=== PATIENT | male | born 1945 | race Caucasian/White ===

== ENCOUNTER → 2017-03-08 | Outpatient (CLI) | payer MEDICARE ==
[~2017-03-08] VITALS: Ht 170.2 cm; Wt 72.6 kg
[~2017-03-08] MED LIST: AMLO5TAB2 PO; CATHETER FLUSH 10 ML SYR IV PRN; ENLP10T PO; LOSA50TA36 PO; REGADENOSON 0.4 MG/5 ML SYR (LEXISCAN) IV ONE
[2017-03-08 08:02] VITALS: BP 122/64
--- NOTE | 2017-03-08 15:18 | STRESS TEST ---
PROCEDURE PHYSICIAN: OSMEL TAN DATE OF PROCEDURE: 03/08/2017 MYOCARDIAL PERFUSION IMAGING: ATTENDING PHYSICIAN: Dr. Espinosa. DIAGNOSIS: Chest pain. PROCEDURE DETAILS: The patient was brought to the stress lab after informed consent was taken. Pharmacological nuclear stress test was performed. Dr. Espinosa supervised the stress test portion of the test. Please refer to his note for further details on the stress test. 10.49 mCi of Myoview were given for rest imaging and 30.3 mCi of Myoview were given for stress imaging. TID was 0.89. EF: 73%. There is no perfusion abnormalities on stress or rest imaging. There is normal wall motion on gaited images. SSS 2, SRS 2, SDS 0. IMPRESSION/CONCLUSION: 1. Myocardial perfusion imaging shows no perfusion defect on and rest and stress imaging. 2. Normal LV function with no wall motion abnormalities. Job ID: [id number] Dictated Date: 03/08/2017 14:52:03 Mailing Specialist Date: 03/08/2017 15:15:16 / stacy
== END ==
LOC: CARD 06:51
PROVIDERS: ATTEND Nurse Practitioner Family
DX: R07.9 Chest pain, unspecified (principal)
CPT/HCPCS: 78452; 93017

== ENCOUNTER → 2017-08-23 | Outpatient (CLI) | payer MEDICARE ==
[~2017-08-23] MED LIST changes: -CATHETER FLUSH 10 ML SYR IV PRN; -REGADENOSON 0.4 MG/5 ML SYR (LEXISCAN) IV ONE
--- NOTE | 2017-08-23 10:56 | Diagnostic Imaging Report ---
PROCEDURE: MR imaging of the brain without contrast. TECHNIQUE: Multiplanar/multisequence MR imaging of the brain was performed without contrast. INDICATION: Tumors. Weakness. History of polymyositis. FINDINGS: There is no diffusion restriction to suggest an acute infarct or other diffusion abnormality. The brain parenchyma demonstrates periventricular and deep white matter mild T2 hyperintense signal abnormality with no mass effect or edema. No demyelinating lesion or brain mass is identified. No hydrocephalus. The brainstem and cerebellum appear unremarkable. The pituitary gland is normal in size. No hypothalamic or pineal region mass. The central vascular flow-voids appear unremarkable. The internal auditory canals and inner ear structures appear unremarkable. There is mucosal thickening in the left maxillary sinus and in the ethmoidal air cells. IMPRESSION: 1. No acute infarct. Minimal periventricular white matter signal abnormality is likely secondary to chronic microvascular ischemic changes. 2. Mucosal thickening in the paranasal sinuses. Dictated by: Dictated on workstation # [id number]
== END ==
LOC: RAD 09:06
PROVIDERS: ATTEND Psychiatry & Neurology Neurology
DX: G14 Postpolio syndrome (principal); J34.89 Other specified disorders of nose and nasal sinuses
CPT/HCPCS: 70551

== ENCOUNTER → 2018-02-14 | Outpatient (CLI) | payer MEDICARE ==
--- NOTE | 2018-02-14 12:44 | Diagnostic Imaging Report ---
PROCEDURE: US abdomen complete. TECHNIQUE: Multiple real-time grayscale images were obtained over the abdomen in various projections. INDICATION: Lower abdominal mass. FINDINGS: There are no prior ultrasound examinations available for comparison. Reportedly, there is clinical concern regarding a lower abdominal mass. During the course of the exam, the urinary bladder was visualized. Within the bladder, there is a small 0.5 x 0.6 x 0.6 cm intraluminal echogenic density. This finding is of uncertain etiology but could be related to a bladder neoplasm. Cystoscopy will be recommended for further evaluation. The urinary bladder is otherwise unremarkable. The right ureteral jet is visualized. There is no pelvic mass or free fluid collection noted otherwise. There is no acute abnormality of the abdomen. The liver does not appear to be enlarged and there is no sign of a hepatic mass. There is no evidence for cholelithiasis or acute cholecystitis and the common bile duct is not dilated. Both kidneys are identified. The right kidney measures 10.1 x 5.9 x 5.6 cm while the left kidney is estimated to be 10.4 x 5.4 x 4.4 cm. The renal pelvis on the left does seem slightly more prominent than the right. The reason for this is not certain. There is no evidence for a solid renal mass. The aorta and the inferior vena cava and spleen are unremarkable. The pancreas is obscured by bowel gas. IMPRESSION: 1. There is a small intraluminal mass in the bladder base on the right. This finding is of uncertain etiology but worrisome for neoplasm. Cystoscopy will be recommended for further study. 2. There is no mass or free fluid collection within the pelvis otherwise. If further study is desired, however, then CT of the abdomen and pelvis will be recommended. 3. There is no acute abnormality of the abdomen. 4. The left renal pelvis is slightly dilated compared to the right. The reason for this is not certain. This finding could also be further evaluated by CT. 5. The pancreas is obscured by bowel gas. Dictated by: Dictated on workstation # [id number]
== END ==
LOC: RAD 07:47
PROVIDERS: ATTEND Nurse Practitioner Family
DX: N32.89 Other specified disorders of bladder (principal)
CPT/HCPCS: 76700

== ENCOUNTER → 2018-02-18 | Outpatient (CLI) | payer MEDICARE ==
[~2018-02-18] MED LIST changes: +IOHEXOL 350 MG/ML 100 ML (OMNIPAQUE 350) VIAL IV ONE; +NS 250 ML (IVPB) BAG IV ONE
[2018-02-18 10:01] LABS: BUN/CREATININE RATIO 24; CREATININE SERUM 0.93 MG/DL (0.60-1.30); GFR ESTIMATED > 60
--- NOTE | 2018-02-18 11:08 | Diagnostic Imaging Report ---
PROCEDURE: CT abdomen and pelvis with and without contrast. TECHNIQUE: Precontrast acquisitions were acquired through the abdomen and pelvis. Multiple contiguous axial images were obtained through the abdomen and pelvis after the administration of intravenous contrast. INDICATION: Bladder mass was noted at earlier ultrasound. FINDINGS: Lung bases were clear. No basilar pleural fluid. Hepatic density suggests mild steatosis. There is no liver mass. Spleen, adrenals, pancreas and gallbladder unremarkable. There are bilateral mild renal parapelvic cysts with no hydronephrosis, solid enhancing or suspect renal mass. Scattered noninflamed diverticuli at the sigmoid colon. There is no abdominal, pelvic, mesenteric or retroperitoneal lymphadenopathy. Some heterogeneous enlargement of the prostate indenting the bladder base. The bladder was very poorly distended at the study limiting its evaluation. Its wall does appear to be at least mildly thickened. A discrete intraluminal bladder mass cannot be identified but again its assessment is limited by its lack of distention as well as impingement upon its base by the heterogeneous enlarged prostate. No perivesicle adenopathy. There is no suspicious lytic or sclerotic bone lesion. IMPRESSION: Heterogeneous nodular prostatomegaly indenting the bladder base. Bladder wall is thickened. Its evaluation limited by its poor distention. No discrete measurable intravesical mass. Benign renal parapelvic cysts. No hydronephrosis. No bowel, biliary or urinary tract obstruction. There was no lymphadenopathy. Mild steatosis in the liver noted. Not mentioned above, small fatty left inguinal hernia noninflamed. Dictated by: Dictated on workstation # [id number]
== END ==
LOC: RAD 09:32
PROVIDERS: ATTEND Internal Medicine
DX: N40.2 Nodular prostate without lower urinary tract symptoms (principal); N32.89 Other specified disorders of bladder; N28.1 Cyst of kidney, acquired; K76.0 Fatty (change of) liver, not elsewhere classified; K40.90 Unilateral inguinal hernia, without obstruction or gangrene, not specified as recurrent
CPT/HCPCS: 36415; 74178; 82565; 84520

== ENCOUNTER → 2019-05-15 | Outpatient (CLI) | payer MEDICARE ==
[~2019-05-15] MED LIST changes: -AMLO5TAB2 PO; +AMLO5TAB9 PO; +GADOBUTROL 7.5 MMOL/7.5 ML (GADAVIST) VIAL IV ONE; -IOHEXOL 350 MG/ML 100 ML (OMNIPAQUE 350) VIAL IV ONE; -LOSA50TA36 PO; +LOSA50TA63 PO; -NS 250 ML (IVPB) BAG IV ONE
[2019-05-15 08:29] LABS: BUN/CREATININE RATIO 18; CREATININE SERUM 0.87 MG/DL (0.60-1.30); GFR ESTIMATED > 60
--- NOTE | 2019-05-15 13:20 | Diagnostic Imaging Report ---
INDICATION: Right-sided hearing loss. TECHNIQUE: Pre-and post intravenous contrast multiplanar, multisequence imaging through the brain was performed. In addition, thin slice imaging through the IACs was performed. COMPARISON: Correlation is made with prior MRI of the brain from 08/23/2017. FINDINGS: The ventricles and sulci are appropriate for the patient's age. No diffusion restriction is identified. The normal expected flow voids within the carotid siphons are seen. No acute intra-axial or extra-axial hemorrhage is detected. Corpus callosum is unremarkable. Sella and parasellar structures are unremarkable. IACs appear unremarkable. No cerebellopontine angle mass is seen. The seventh and eighth nerve complexes are unremarkable. There is fluid throughout the right mastoid air cells consistent with right mastoid effusion. IMPRESSION: Essentially unremarkable MRI of the brain and IACs with the exception of right mastoid effusion. No other significant abnormality is seen. Dictated by: Dictated on workstation # [id number]
== END ==
LOC: RAD 06:54
PROVIDERS: ATTEND Otolaryngology Otolaryngology/Facial Plastic Surgery
DX: H91.8X1 Other specified hearing loss, right ear (principal); G93.6 Cerebral edema
CPT/HCPCS: 36415; 70553; 82565; 84520

== ENCOUNTER 2019-11-12 09:30 | Outpatient (CLI) | payer MEDICARE ==
[~2019-11-12] VITALS: Ht 170.2 cm; Wt 75.0 kg
[~2019-11-12 09:30] MED LIST changes: -GADOBUTROL 7.5 MMOL/7.5 ML (GADAVIST) VIAL IV ONE
[2019-11-12] MEDS ORDERED: LEVO50TA6 PO (09:38)
[2019-11-12] MEDS ORDERED: NALT50TA PO (09:38)
== END 2019-11-12 09:39 | disposition home or self-care (01) ==
LOC: PREOP 09:30
PROVIDERS: ATTEND Internal Medicine
DX: Z01.818 Encounter for other preprocedural examination (principal)

== ENCOUNTER 2019-11-13 08:31 | Day surgery (SDC) | payer MEDICARE ==
--- NOTE | 2019-11-11 07:51 | HISTORY AND PHYSICAL ---
DATE OF SERVICE: SCREENING COLONOSCOPY SUMMARY REFERRING PHYSICIAN Dr. Perry Espinosa. The patient is a 74-year-old white male referred for screening colonoscopy. He had a distant past history of colon polyps. His last colonoscopy was in [address] Davis. At that time, he had no evidence for polyposis. There was report of an ulceration on the ileocecal valve and some diverticulosis. On a previous colonoscopy, he had a villous adenoma removed via polypectomy prior to 2005. He has had no rectal bleeding. Denies bowel habit change, diarrhea, constipation or abdominal pain. 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 He is also on B12 replacement subq. PAST SURGICAL HISTORY: He also apparently had transanal resection for rectal villous adenoma. He has had multiple basal cells removed, tonsillectomy and adenoidectomy in the past and arthroscopic knee surgery. 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 He does admit drinking 2 to 3 beers per day on most days of the week. FAMILY HISTORY: He is not aware of any family history of colon cancer or polyposis. PHYSICAL EXAMINATION: GENERAL: Reveals a pleasant, alert and oriented white male in no acute distress. VITAL SIGNS: Weight 172 pounds, blood pressure 130/80, heart rate 70 and regular. HEENT: Unremarkable. Mallampati 2 oropharyngeal configuration. CHEST: Clear to auscultation. CARDIOVASCULAR: Reveals a regular rate and rhythm without murmur, S3 or S4. ABDOMEN: Soft, supple without mass, organomegaly or tenderness. No bruits are noted. No evidence for abdominal aortic aneurysm to palpation is noted. EXTREMITIES: Reveal no cyanosis, clubbing or edema. ASSESSMENT AND PLAN: The patient was set up for screening colonoscopy. Prep instructions with the Suprep kit were given and questions were answered. Thank you for the referral of this pleasant gentleman. Job ID: [id number] DocumentID: [id number] Dictated Date: 11/10/2019 10:11:36 Jewelry Casting Model Maker Apprentice Date: 11/10/2019 11:07:00 Dictated By: ERIC WEEMS MD
[2019-11-13] VITALS (14 sets, daily range): BP systolic 141–175; BP diastolic 70–86
[~2019-11-13] VITALS: Ht 170.2 cm; Wt 75.0 kg
[~2019-11-13 08:31] MED LIST changes: +LEVO50TA6 PO; +NALT50TA PO
[2019-11-13] MEDS ORDERED: D5 LR IV SOLUTION 1,000 ML IV ONE (08:36)
[2019-11-13] MEDS ORDERED: D5 LR IV SOLUTION 1,000 ML IV STA (08:41)
[2019-11-13] MEDS ORDERED: fentaNYL INJECTION 100 MCG/2 ML AMP IVP ONE (08:45)
[2019-11-13] MEDS ORDERED: MIDAZOLAM 5 MG/5 ML (VERSED) VIAL IV PRN (08:45)
[2019-11-13] MEDS ORDERED: LIDOCAINE JELLY 2% 6 ML SYRINGE ONE (09:09)
[2019-11-13] MEDS ORDERED: fentaNYL INJECTION 100 MCG/2 ML AMP ONE ×2 (09:09)
--- NOTE | 2019-11-13 09:41 | Pre-Op Note & Conscious Sedat ---
Pre-Operative Progress Note H&P Reviewed The H&P was reviewed, patient examined and no changes noted. Date H&P Reviewed: Nov 13, 2019 Time H&P Reviewed: 09:00 Conscious Sedation Pre-Proced ASA Score 2 For ASA 3 and 4: Consider anesthesia and medical clearance. Also, for patients with a history of failed moderate sedation consider anesthesia. Airway Lungs Heart ASA score ASA 1: a normal healthy patient ASA 2: a patient with a mild systemic disease (mid diabetes, controlled hypertension, obesity ASA 3: a patient with a severe systemic disease that limits activity (angina, COPD, prior Myocardial infarction) ASA 4: a patient with an incapacitating disease that is a constant threat to life (CHF, renal failure) ASA 5: a moribund patient not expected to survive 24 hrs. (ruptured aneurysm) ASA 6: a declared brain- patient whose organs are being harvested. For emergent operations, add the letter E after the classification Mallampati Classification Grade 2 Sedation Plan Analgesia, Amnesia, Plan communicated to team members, Discussed options with patient/fam, Discussed risks with patient/fam The patient is an appropriate candidate to undergo the planned procedure, sedation, and anesthesia. The patient immediately re-assessed prior to indication. ERIC WEEMS MD Nov 13, 2019 09:41
[2019-11-13] MEDS ORDERED: LIDOCAINE JELLY 2% 6 ML SYRINGE TOP ONE (10:00)
--- NOTE | 2019-11-13 16:15 | OPERATIVE REPORT ---
DATE OF SERVICE: COLONOSCOPY SUMMARY INDICATION FOR THE PROCEDURE: Screening. DESCRIPTION OF PROCEDURE: The patient was placed in the left lateral decubitus position. Prior to undergoing colonoscopy, digital rectal evaluation was performed. Anal sphincter tone was normal and the perianal reflexes intact. On digital inspection, there is a polypoid structure noted along the anterior rectal wall noted about 2 cm proximal to the anal verge. It was not firm nor fixed. The prostate was unremarkable to digital inspection did not appear to be enlarged, although the patient does have reported prostate cancer, noted to be elevated PSA and is on active surveillance. No other abnormalities were noted. The colonoscope was then inserted into the rectum and under direct visualization advanced to cecum. The cecum was identified by identification of the ileocecal valve and cecal strap. Photographic documentation was obtained. Careful inspection was made as the colonoscope was withdrawn. FINDINGS: There was no evidence for internal or external hemorrhoids. There is a flat polyp somewhat vascular without evidence for ulceration or inflammatory change noted along the anterior rectal wall. It is not well circumscribed and biopsies were obtained and submitted for histopathology. The remainder of the rectum was unremarkable. The present throughout the sigmoid colon where a moderate number medium to large size diverticulum without evidence for diverticulitis, haustral hypertrophy is noted with no evidence for obstruction or scar tissue. No evidence for neoplasia was identified. The descending colon, splenic flexure, transverse colon, hepatic flexure, ascending colon and cecum were unremarkable. ASSESSMENT: 1. Probable recurrent sessile adenoma involving the anterior rectal wall, which was too large to reliably remove via snare or via cautery. We will await histopathology report, but it does appear to be technically amenable to transanal resection. In review of his electronic medical, Dr. Milton had performed a colonoscopy on him in 2016, at which time he removed a tubulovillous adenoma via snare in what appears to be about the same location. There was no evidence for dysplasia at that time. 2. Moderate diverticular disease confined to the sigmoid colon was present without evidence for diverticulitis. No other significant abnormalities were noted. Thank you for the referral of this pleasant gentleman. Job ID: [id number] DocumentID: [id number] Dictated Date: 11/13/2019 11:14:35 Editor Managing Director Date: 11/13/2019 16:13:16 Dictated By: ERIC WEEMS MD [facility]
== END 2019-11-13 10:40 | disposition home or self-care (01) ==
LOC: ENDO 08:31
PROVIDERS: ATTEND Internal Medicine
DX: D12.8 Benign neoplasm of rectum (principal); K57.30 Diverticulosis of large intestine without perforation or abscess without bleeding; K59.39 Other megacolon; R97.20 Elevated prostate specific antigen [PSA]; I10 Essential (primary) hypertension; Z90.89 Acquired absence of other organs; Z85.46 Personal history of malignant neoplasm of prostate

== ENCOUNTER 2021-01-12 11:11 | Outpatient (RCR) | payer MEDICARE ==
[~2021-01-12 11:11] MED LIST changes: +AMLO-250 PO; -AMLO5TAB9 PO
== END 2021-01-12 12:00 | disposition home or self-care (01) ==
PROVIDERS: ATTEND Internal Medicine
DX: M46.06 Spinal enthesopathy, lumbar region (principal)

== ENCOUNTER 2021-09-14 08:59 | Outpatient (CLI) | payer MEDICARE ==
[~2021-09-14] VITALS: Ht 170.2 cm; Wt 74.0 kg
[2021-09-14] MEDS ORDERED: ERGO2000 PO (14:08)
[2021-09-14] MEDS ORDERED: NAPR220C11 PO (14:08)
[2021-09-14] MEDS ORDERED: VITA1CAP PO (14:08)
== END 2021-09-14 16:37 | disposition home or self-care (01) ==
LOC: PREOP 08:59
PROVIDERS: ATTEND Internal Medicine
DX: Z01.818 Encounter for other preprocedural examination (principal)

== ENCOUNTER → 2021-09-22 | Day surgery (SDC) | payer MEDICARE ==
--- NOTE | 2021-09-15 07:08 | HISTORY AND PHYSICAL ---
DATE OF SERVICE: COLONOSCOPY SUMMARY HISTORY: The patient is a 76-year-old white male referred by Dr. Espinosa for surveillance colonoscopy. I had performed colonoscopy on him in 11/2019, at which time he had a sessile villous adenoma without dysplasia noted along the anterior rectal wall. It was too large to reliably remove via snare cauterization, so he underwent transanal resection, it required 2 separate procedures, the last in April, at which time, Dr. Klein, surgeon in [place] told me he felt that he had removed all the polyp tissue. He reports that he has had no subsequent bleeding and has been feeling well. There has been no other change in his health history and no new medication. He takes no antiplatelet or anticoagulant medication. He has noted no blood in the stools, had no problems with constipation or diarrhea. PHYSICAL EXAMINATION: GENERAL: Reveals a white male, appears to be in no acute distress. HEENT: Unremarkable. Sclerae nonicteric. VITAL SIGNS: Weight stable at 172 pounds, blood pressure 122/70. CHEST: Clear. CARDIOVASCULAR: Reveals a regular rate and rhythm without murmur, S3 or S4. ABDOMEN: Soft, supple without mass, organomegaly or tenderness. RECTAL: Deferred at the time of colonoscopy. The patient is being set up for surveillance colonoscopy due to past history of villous adenoma ultimately removed via transanal resection in 2 procedures. The patient has no one to drive him and like his last colonoscopy, he requests that this be done without anesthesia, which he tolerated pretty well. For this reason, he will again be set up at [facility]. He is being set up for 09/22/2021. Prep instructions and Suprep kit were given and questions were answered. Thank you for the referral of this pleasant gentleman. Job ID: [id number] DocumentID: [id number] Dictated Date: 08/28/2021 14:54:13 Ship Surveyor Date: 08/28/2021 16:03:40 Dictated By: ERIC WEEMS MD [facility]
[~2021-09-22] VITALS: Ht 170.2 cm; Wt 74.0 kg
[~2021-09-22] MED LIST changes: +D5 LR IV SOLUTION 1,000 ML IV ONE; +D5 LR IV SOLUTION 1,000 ML IV STA; +ERGO2000 PO; +LIDOCAINE JELLY 2% 6 ML SYRINGE MM PRN; +MIDAZOLAM 5 MG/5 ML (VERSED) VIAL IV ONE; +NAPR220C11 PO; +VITA1CAP PO; +fentaNYL INJ 100 MCG/2 ML AMP IVP ONE
--- NOTE | 2021-09-22 09:48 | Pre-Op Note & Conscious Sedat ---
Pre-Operative Progress Note H&P Reviewed The H&P was reviewed, patient examined and no changes noted. Date H&P Reviewed: Sep 22, 2021 Time H&P Reviewed: 09:48 Conscious Sedation Pre-Proced ASA Score 2 For ASA 3 and 4: Consider anesthesia and medical clearance. Also, for patients with a history of failed moderate sedation consider anesthesia. Airway Lungs Heart ASA score ASA 1: a normal healthy patient ASA 2: a patient with a mild systemic disease (mid diabetes, controlled hypertension, obesity ASA 3: a patient with a severe systemic disease that limits activity (angina, COPD, prior Myocardial infarction) ASA 4: a patient with an incapacitating disease that is a constant threat to life (CHF, renal failure) ASA 5: a moribund patient not expected to survive 24 hrs. (ruptured aneurysm) ASA 6: a declared brain- patient whose organs are being harvested. For emergent operations, add the letter E after the classification Mallampati Classification Grade 2 Sedation Plan Analgesia, Amnesia, Plan communicated to team members, Discussed options with patient/fam, Discussed risks with patient/fam The patient is an appropriate candidate to undergo the planned procedure, sedation, and anesthesia. The patient immediately re-assessed prior to indication. ERIC WEEMS MD Sep 22, 2021 09:48
[2021-09-22 10:01] VITALS: BP 163/101
[2021-09-22 11:15] VITALS: BP 169/91
[2021-09-22 11:29] VITALS: BP 173/87
[2021-09-22 11:30] VITALS: BP 173/87
--- NOTE | 2021-09-22 16:55 | OPERATIVE REPORT ---
DATE OF SERVICE: COLONOSCOPY SUMMARY INDICATION FOR THE PROCEDURE: Followup villous adenoma of the rectum. DESCRIPTION OF PROCEDURE: The patient was placed in the left lateral decubitus position. Prior to undergoing colonoscopy, digital rectal evaluation was performed. Anal sphincter tone was normal. The perianal reflexes were intact. There was some narrowing of the distal rectum compatible with the patient's two previous transanal resections, but I was able to easily insert the finger past the area into the mid rectum. No other abnormalities were noted on digital inspection including no prostate abnormalities being appreciated. The colonoscope was then inserted into the rectum and under direct visualization advanced to the cecum. Cecum was identified by identification of the ileocecal valve and cecal strap. The patient was driving himself at home, so this procedure was done with no conscious sedation for which the patient tolerated it very well. FINDINGS: Unfortunately, there was an area suspicious for remnant villous adenoma. Biopsies were obtained and cauterization was performed with no significant blood loss. Again, noted was severe diverticular disease involving the sigmoid colon predominantly into a lesser extent of the descending colon with no other diverticulum proximal to this being noted. No other areas of neoplasia or evidence for vascular malformation was identified on a good quality prep to the cecum. ASSESSMENT: Possible remnant villous adenoma anterior wall of the distal rectum. We will await histopathology report. It is not a large area, so even if there is residual villous adenoma, as long as there is no evidence for severe dysplasia, we will likely just recommend a repeat colonoscopy in 6 to 12 months. I thank you for the referral of this pleasant gentleman. Job ID: [id number] DocumentID: [id number] Dictated Date: 09/22/2021 11:47:35 Forge Press Operator Date: 09/22/2021 16:54:02 Dictated By: ERIC WEEMS MD
== END ==
LOC: ENDO 09:24
PROVIDERS: ATTEND Internal Medicine
DX: D37.5 Neoplasm of uncertain behavior of rectum (principal); K57.30 Diverticulosis of large intestine without perforation or abscess without bleeding; Z98.890 Other specified postprocedural states

== ENCOUNTER → 2022-01-02 | Outpatient (CLI) | payer MEDICARE ==
[~2022-01-02] MED LIST changes: +CATHETER FLUSH 10 ML SYR IVP PRN; -D5 LR IV SOLUTION 1,000 ML IV ONE; -D5 LR IV SOLUTION 1,000 ML IV STA; -LIDOCAINE JELLY 2% 6 ML SYRINGE MM PRN; -MIDAZOLAM 5 MG/5 ML (VERSED) VIAL IV ONE; +REGADENOSON 0.4 MG/5 ML SYR (LEXISCAN) IV ONE; -fentaNYL INJ 100 MCG/2 ML AMP IVP ONE
[2022-01-02 09:38] VITALS: BP 148/74
--- NOTE | 2022-01-03 15:27 | STRESS TEST ---
DATE OF SERVICE: 01/02/2022 RESTING AND POST REGADENOSON TECHNETIUM-99M TETROFOSMIN SPECT CT IMAGING CLINICAL DIAGNOSIS: Coronary artery disease. Baseline images were carried out after injection of 9.99 mCi of technetium-99m Tetrofosmin. This was followed by 0.4 mg Regadenoson and 30.1 mCi of technetium-99m Tetrofosmin for stress imaging. The electrocardiogram showed sinus rhythm at baseline. It did not change significantly with the Regadenoson infusion. Review of images at rest and following stress does not indicate any significant perfusion defects consistent with myocardial ischemia or infarction. Gated images show normal global left ventricular systolic function with normal regional wall motion. Left ventricular ejection fraction is calculated to be 59%. CONCLUSIONS: 1. No evidence of any significant myocardial ischemia or infarction on this study. 2. Normal regional wall motion. 3. Normal global left ventricular systolic function with a calculated ejection fraction of 59%. Job ID: [id number] DocumentID: [id number] Dictated Date: 01/03/2022 13:05:56 Epilepsy Physician Date: 01/03/2022 15:26:42 Dictated By: KAILEY HERNANDEZ MD, MA, FACP, FACC,
== END ==
LOC: CARD 08:30
PROVIDERS: ATTEND Internal Medicine Cardiovascular Disease
DX: I25.10 Atherosclerotic heart disease of native coronary artery without angina pectoris (principal)
CPT/HCPCS: 78452; 93017; A9502

== ENCOUNTER 2022-10-10 05:54 | Outpatient (CLI) | payer MEDICARE ==
[~2022-10-10] VITALS: Ht 170.2 cm; Wt 81.6 kg
[~2022-10-10 05:54] MED LIST changes: -CATHETER FLUSH 10 ML SYR IVP PRN; -REGADENOSON 0.4 MG/5 ML SYR (LEXISCAN) IV ONE
[2022-10-10] MEDS ORDERED: FAMO-275 PO (17:37)
[2022-10-10] MEDS ORDERED: CETI10TA49 PO (17:37)
== END 2022-10-10 17:41 | disposition home or self-care (01) ==
LOC: PREOP 05:54
PROVIDERS: ATTEND Internal Medicine
DX: Z01.818 Encounter for other preprocedural examination (principal)

== ENCOUNTER 2022-10-19 08:32 | Day surgery (SDC) | payer MEDICARE ==
--- NOTE | 2022-10-09 07:26 | HISTORY AND PHYSICAL ---
DATE OF SERVICE: 10/19/2022 COLONOSCOPY HISTORY AND PHYSICAL HISTORY OF PRESENT ILLNESS: The patient is a 77-year-old white male referred for surveillance colonoscopy. One year ago, he was noted to have a villous adenoma in the rectum. It was flat. He underwent cauterization at that time and is here for surveillance. He has been diagnosed with prostate cancer in the interim. He is going to be starting Depo Lupron initially for this within the next month or two. There have been no other changes in his history. He has noted no bright red blood per rectum, melena, constipation, diarrhea or tenesmus. PHYSICAL EXAMINATION: GENERAL: Reveals a white male who appeared to be in no acute distress. VITAL SIGNS: Blood pressure 120/70, weight 180 pounds, is up from his last office weight a little over a year ago of 172 pounds. HEENT: Unremarkable. CHEST: Clear to auscultation. CARDIOVASCULAR: Reveals regular rate and rhythm without murmur, S3, or S4. ABDOMEN: Soft, supple without mass, organomegaly, or tenderness. EXTREMITIES: No cyanosis, clubbing or edema. ASSESSMENT AND PLAN: The patient is being set up for surveillance colonoscopy due to past history of villous adenoma noted in the rectum. The patient reports no mode of transportation. His is blind, does not have any family in town and as was the case last year, will be doing now the procedure under no anesthesia. Prep instructions were given and questions were answered. Job ID: [id number] DocumentID: [id number] Dictated Date: 10/04/2022 16:13:44 Medical Management Specialist Date: 10/04/2022 16:32:00 Dictated By: ERIC WEEMS MD
[~2022-10-19] VITALS: Ht 170.2 cm; Wt 81.6 kg
[2022-10-19] VITALS (8 sets, daily range): BP systolic 142–153; BP diastolic 75–86
[~2022-10-19 08:32] MED LIST changes: +CETI10TA49 PO; +FAMO-275 PO
[2022-10-19] MEDS ORDERED: LACTATED RINGERS 1,000 ML IV STA (08:38)
[2022-10-19] MEDS ORDERED: MIDAZOLAM 5 MG/5 ML (VERSED) VIAL IV ONE (08:45)
[2022-10-19] MEDS ORDERED: LIDOCAINE JELLY 2% 6 ML SYRINGE MM PRN (08:45)
[2022-10-19] MEDS ORDERED: fentaNYL INJ 100 MCG/2 ML AMP IVP ONE (08:45)
--- NOTE | 2022-10-19 08:51 | Pre-Op Note & Conscious Sedat ---
Pre-Operative Progress Note Date H&P Reviewed: Oct 19, 2022 Time H&P Reviewed: 08:50 History & Physical: H&P Reviewed, Patient Examed, No changes noted Pre-Op Diagnosis: follow up of rectal villous adenoma Conscious Sedation Pre-Proced ASA Score 2 For ASA 3 and 4: Consider anesthesia and medical clearance. Also, for patients with a history of failed moderate sedation consider anesthesia. Airway Lungs Heart ASA score ASA 1: a normal healthy patient ASA 2: a patient with a mild systemic disease (mid diabetes, controlled hypertension, obesity ASA 3: a patient with a severe systemic disease that limits activity (angina, COPD, prior Myocardial infarction) ASA 4: a patient with an incapacitating disease that is a constant threat to life (CHF, renal failure) ASA 5: a moribund patient not expected to survive 24 hrs. (ruptured aneurysm) ASA 6: a declared brain- patient whose organs are being harvested. For emergent operations, add the letter E after the classification Mallampati Classification Grade 2 Sedation Plan Analgesia, Amnesia, Plan communicated to team members, Discussed options with patient/fam, Discussed risks with patient/fam The patient is an appropriate candidate to undergo the planned procedure, sedation, and anesthesia. The patient immediately re-assessed prior to indication. ERIC WEEMS MD Oct 19, 2022 08:50
--- NOTE | 2022-10-19 10:02 | Progress Note-Post Operative ---
Post-Procedure Note Physician (s)/Farrowing Worker (s) Physician ERIC WEEMS MD Pre-Procedure Diagnosis Pre-Procedure Diagnosis: follow up of rectal villous adenoma Post-Procedure Diagnosis Post-operative diagnosis: .Prior to undergoing colonoscopy digital rectal evaluation was performed. anal sphincter tone was normal and the perianal reflexes intact. Prostate is firm to digital inspection with no abnormality being noted otherwise on digital inspection. The colonoscope was then inserted into the rectum and under direct visualization advanced to the cecum. The cecum was done 5 identification of the ileocecal valve and cecal strap. a careful inspection was made as the colonoscope was withdrawn. Quality the prep was good. Findings: There are still remnants of a flat villous adenoma and noted in the distal rectum now roughly 1 x 3 cm in size multiple areas were biopsied and cauterized and submitted for histopathology with minimal blood loss. The remainder the rectum was unremarkable. Again noted was severe diverticular disease predominantly sigmoid colon to a lesser extent descending colon without evidence for diverticulitis. The splenic flexure transverse colon hepatic flexure ascending colon and cecum are unremarkable. A/P 1. Persistence of flat villous adenoma with no evidence for ulceration and no palpable abnormalities on digital inspection involving the distal rectum. The patient does have upcoming reported PET scan for evaluation of prostate cancer with a very high reported PSA. As long as there is no evidence for high-grade dysplasia would advocate continued colonoscopic monitoring. If there is evidence for high-grade dysplasia if the patient is felt to have more than a 5-year survival likelihood with prostate cancer would advocate transanal resection first prior to radiation therapy as the surgery would be within the radiation port. Most likely this will not be the case and would just advocate consideration for repeat surveillance colonoscopy in 1 year. Sincerely, Eric Weems MD. CC: Dr. Perry Espinosa DO. ERIC WEEMS MD Oct 19, 2022 10:02
== END 2022-10-19 10:37 | disposition home or self-care (01) ==
LOC: ENDO 08:32
PROVIDERS: ATTEND Internal Medicine
DX: Z12.11 Encounter for screening for malignant neoplasm of colon (principal); D37.5 Neoplasm of uncertain behavior of rectum; K57.30 Diverticulosis of large intestine without perforation or abscess without bleeding; C61 Malignant neoplasm of prostate

== ENCOUNTER → 2022-10-25 | Outpatient (CLI) | payer MEDICARE | LOC: CARD 09:22 | PROVIDERS: ATTEND Internal Medicine Cardiovascular Disease | DX: R06.09 Other forms of dyspnea (principal) | CPT/HCPCS: 93306 ==

== ENCOUNTER → 2023-02-06 | Outpatient (RCR) | payer MEDICARE | END | disposition home or self-care (01) | LOC: ONC 01-14 09:01 | PROVIDERS: ATTEND Radiology Radiation Oncology | DX: Z51.0 Encounter for antineoplastic radiation therapy (principal); C61 Malignant neoplasm of prostate; I10 Essential (primary) hypertension; E78.5 Hyperlipidemia, unspecified; I73.00 Raynaud's syndrome without gangrene; G14 Postpolio syndrome; I25.10 Atherosclerotic heart disease of native coronary artery without angina pectoris; I65.23 Occlusion and stenosis of bilateral carotid arteries | CPT/HCPCS: 77300; 77301; 77334; 77338; 77385; 77470; 99205; 99215 ==

== ENCOUNTER → 2023-03-08 | Outpatient (RCR) | payer MEDICARE | END | disposition home or self-care (01) | LOC: ONC 02-07 09:59 | PROVIDERS: ATTEND Radiology Radiation Oncology | DX: Z51.0 Encounter for antineoplastic radiation therapy (principal); C61 Malignant neoplasm of prostate; I10 Essential (primary) hypertension; E78.5 Hyperlipidemia, unspecified; I73.00 Raynaud's syndrome without gangrene; G14 Postpolio syndrome; I25.10 Atherosclerotic heart disease of native coronary artery without angina pectoris; I65.23 Occlusion and stenosis of bilateral carotid arteries | CPT/HCPCS: 77336; 77385; 77386 ==

== ENCOUNTER 2023-03-11 09:33 | Outpatient (RCR) | payer MEDICARE | END 2023-04-08 | disposition home or self-care (01) | LOC: ONC 09:33 | PROVIDERS: ATTEND Radiology Radiation Oncology | DX: Z51.0 Encounter for antineoplastic radiation therapy (principal); C61 Malignant neoplasm of prostate; I10 Essential (primary) hypertension; E78.5 Hyperlipidemia, unspecified; I73.00 Raynaud's syndrome without gangrene; G14 Postpolio syndrome; I25.10 Atherosclerotic heart disease of native coronary artery without angina pectoris; I65.23 Occlusion and stenosis of bilateral carotid arteries | CPT/HCPCS: 77336; 77385; G0463 ==

== ENCOUNTER → 2023-03-11 | Outpatient (CLI) | payer MEDICARE ==
--- NOTE | 2023-03-11 15:31 | Diagnostic Imaging Report ---
INDICATION: Back pain. COMPARISON: None. FINDINGS: Frontal, lateral, and oblique radiographic views of the lumbar spine were obtained. Evaluation of the static alignment shows mild grade 1 anterolisthesis at L3-L4 and L4-L5. There is no evidence of jumped facets. Vertebral body heights are maintained. There is no acute fracture. Moderate multilevel degenerative changes are noted and consist of intervertebral disc height loss with endplate osteophyte formations and sclerotic change. These changes are greatest at the L3-L4 and L4-L5 levels. No unexpected radiopaque foreign bodies are seen. IMPRESSION: 1. No acute fracture or dislocation of the lumbar spine. 2. Moderate multilevel degenerative changes. Dictated by: Dictated on workstation # [id number]
== END ==
LOC: RAD 13:50
PROVIDERS: ATTEND Internal Medicine
DX: M47.816 Spondylosis without myelopathy or radiculopathy, lumbar region (principal)
CPT/HCPCS: 72110

== ENCOUNTER 2023-04-14 09:48 | Emergency (ER) | payer MEDICARE ==
[~2023-04-14] VITALS: Ht 170 cm; Wt 78.0 kg
[2023-04-14] MEDS ORDERED: dexAMETHasone 6 MG TABLET PO STA (10:28)
--- NOTE | 2023-04-14 10:28 | ED EENT ---
History of Present Illness General Chief Complaint: Oral/Throat Problems Stated Complaint: SORE THROAT X2 WKS Nursing Triage Note: PT AMB TO [facility] 9 PT CO OF SORETHROAT FOR 2 WEEKS, HAS HOARSE VOICE. DENIES FEVERS STATES HAS TESTED - FOR COVID. PT DOES HAVE A PROD COUGH AT TIMES. Source: patient Exam Limitations: no limitations History of Present Illness Date Seen by Provider: Apr 14, 2023 Time Seen by Provider: 10:17 Initial Comments 78-year-old male presents for sore throat. Symptoms started on the right side and now bilateral. Symptoms present for about 2 weeks now. He just started to have some increased nasal congestion over the last couple of days. No fevers or chills. He states it is significantly tender to swallow. All other systems reviewed and negative except documented per HPI. Voice recognition software was used to help create this chart Allergies and Home Medications Allergies Coded Allergies: No Known Drug Allergies (Verified , 02/13/16) Patient Home Medication List Home Medication List Reviewed: Yes Amlodipine Besylate (Amlodipine Besylate) 5 Mg Tablet, 5 MG PO DAILY, (Reported) Entered as Reported by: CHAKA PAPPAS on 02/10/16 1246 Cetirizine HCl (Zyrtec) 10 Mg Tablet, 10 MG PO DAILY, (Reported) Entered as Reported by: KAYODE YUSUF on 10/10/22 1737 Famotidine (Zantac-360 (Famotidine)) 20 Mg Tablet, 20 MG PO DAILY, (Reported) Entered as Reported by: KAYODE YUSUF on 10/10/22 1737 Levothyroxine Sodium (Levothyroxine Sodium) 50 Mcg Tablet, 50 MCG PO, (Reported) Entered as Reported by: ZULEMA DEE on 11/12/19 0938 Losartan Potassium (Losartan Potassium) 50 Mg Tablet, 50 MG PO DAILY, (Reported) Entered as Reported by: CHAKA PAPPAS on 02/10/16 1246 Vitamin B Complex (Vitamin B Complex) 1 Each Capsule, 1 EACH PO DAILY, (Reported) Entered as Reported by: ABBY PRESTON on 09/14/21 1408 Review of Systems Review of Systems Constitutional: see HPI Past Wewvsjk-Lsmlce-Rybzuv Hx Patient Social History Tobacco Use?: No Substance use?: No Alcohol Use?: Yes Alcohol type: Beer Alcohol Frequency: Couple times a week Pt feels they are or have been: No Immunizations Up To Date First/Initial COVID19 Vaccinat: 10/30 Second COVID19 Vaccination Juan Carlos: 11/27 Third COVID19 Vaccination Date: 07/30 Seasonal Allergies Seasonal Allergies: Yes Past Medical History Surgeries: Yes (COLON SURGERY-ILEUS ADENOMA, CATARCTS, RIGHT KNEE SCOPE) Bowel Surgery, Orthopedic, Tonsillectomy Respiratory: Yes Sleep Apnea Currently Using CPAP: Yes Cardiac: Yes Hypertension Neurological: No Genitourinary: Yes Prostate Problems Gastrointestinal: Yes Gastroesophageal Reflux, Polyps Musculoskeletal: Yes Arthritis Endocrine: Yes Hypothyroidsim HEENT: Yes (CATERACT SURGERY) Cataract, Tinnitis Loss of Vision: Denies Hearing Impairment: Hard of Hearing, Bilateral Hearing Aide Cancer: Yes Prostate, Skin What Type of Treatment Did You: Radiation, Surgical Intervention Psychosocial: No 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 0.0oz. 72.359760gs; 26.00 BMI Method: General Appearance: WD/WN, no apparent distress Eyes: bilateral eye normal inspection, bilateral eye PERRL, bilateral eye EOMI Ears: bilateral ear auricle normal, bilateral ear canal normal, bilateral ear TM normal Nose: normal inspection Mouth/Throat: other (Slight posterior oropharyngeal erythema. No exudate. Uvula is midline.) Neck: non-tender, supple, normal inspection, other (No lymphadenopathy) Cardiovascular: regular rate, rhythm, no murmur Respiratory: chest non-tender, lungs clear, normal breath sounds, no respiratory distress, no accessory muscle use Gastrointestinal: normal bowel sounds, non tender, soft Skin: normal color, warm/dry Progress/Results/Core Measures Results/Orders Lab Results Laboratory Tests Test 04/14/23 10:20 Range/Units Group A Streptococcus Screen NEGATIVE NEGATIVE My Orders Orders - STERLING REDDY DO Rapid Strep A Screen (04/14/23 10:07) Dexamethasone Tablet (Dexamethasone Ta (04/14/23 10:28) Throat Culture Strep A Confirm (04/14/23 10:20) Vital Signs/I&O 04/14/23 10:00 Temp 36.6 Pulse 72 Resp 18 B/P (MAP) 137/80 (99) Pulse Ox 97 Blood Pressure Mean: 99 Departure Communication (Admissions) Patient is hemodynamically stable, tolerating his own secretions. His posterior oropharynx is fairly benign in appearance. Given the duration of his symptoms we checked him for strep and it was negative. There is no evidence for masses, uvula is midline. No submandibular pain or swelling to suggest Jasmyne's angina. No symptoms to suggest retropharyngeal or peritonsillar abscess at this time. He is given oral Decadron and treated conservatively with outpatient care and close follow-up. Impression Primary Impression: Sore throat Disposition: 01 HOME, SELF-CARE Condition: Stable Departure-Patient Inst. Referrals: NEGAR ACKERMAN DO (PCP/Family) Primary Care Physician Patient Instructions: Sore Throat, Adult ED Add. Discharge Instructions: Your strep test is negative here today. You have been given a medicine called Decadron which should help with the inflammation and pain. I recommend use ibuprofen on top of this as well as some lukewarm salt water gargles try Claritin [id number] which may help as well. If your symptoms persist I recommend you follow-up with your primary doctor for further evaluation and treat recommendations. Return to the emergency department if things are getting stuck in your throat or for inability to swallow fluids. All discharge instructions reviewed with patient and/or family. Voiced understanding. STERLING REDDY DO Apr 14, 2023 10:28
[2023-04-14 10:45] VITALS: BP 137/80
== END 2023-04-14 10:44 | disposition home or self-care (01) ==
LOC: EDUNIT# 09:48 → ER 09:50
DX: J02.9 Acute pharyngitis, unspecified (principal); G47.30 Sleep apnea, unspecified; Z99.89 Dependence on other enabling machines and devices
CPT/HCPCS: 87430; 99283